=== PATIENT | female | born 1985 | race Native Hawaiian/Other Pacific Islander ===

== ENCOUNTER 2016-05-08 03:45 | Emergency (ER) | payer BC ==
[~2016-05-08] VITALS: Ht 175.3 cm; Wt 111.1 kg
[~2016-05-08 03:45] MED LIST: LEXAPRO20 MG PO
== END 2016-05-08 05:50 | disposition home or self-care (01) ==
LOC: ED 03:45
DX: R10.9 Unspecified abdominal pain (principal)
CPT/HCPCS: 81000; 87086; 87088; 99283

== ENCOUNTER 2016-07-22 22:00 | Emergency (ER) | payer BC ==
[~2016-07-22] VITALS: Ht 172.7 cm; Wt 108.9 kg
== END 2016-07-23 00:53 | disposition home or self-care (01) ==
LOC: ED 22:00
DX: R51 Headache (principal); R11.2 Nausea with vomiting, unspecified
CPT/HCPCS: 87880; 99283

== ENCOUNTER 2019-04-04 22:35 | Emergency (ER) | payer OTHER ==
[~2019-04-04] VITALS: Ht 175.3 cm; Wt 117.9 kg
[2019-04-04] MEDS ORDERED: AMITRIPTYLINE150 MG PO (22:50)
[2019-04-04] MEDS ORDERED: VENLAFAXINE225 MG PO (22:50)
[2019-04-04 23:27] VITALS: BP 128/67; TEMP 97.9
== END 2019-04-04 23:27 | disposition home or self-care (01) ==
LOC: ED 22:35
DX: M77.9 Enthesopathy, unspecified (principal)
CPT/HCPCS: 99283